=== PATIENT | female | born 1960 | race Caucasian/White ===

== ENCOUNTER 2021-02-10 10:24 | Inpatient (IN) | payer MEDICAID, OTHER ==
[2021-02-10] VITALS (10 sets, daily range): BP systolic 137–196; BP diastolic 67–94
[~2021-02-10] VITALS: Ht 170.2 cm; Wt 75.3 kg
[~2021-02-10 10:24] MED LIST: BP MED; FLUO10CA66 PO; ONDA8TAB9 PO; RES15C PO
[2021-02-10] MEDS ORDERED: iohexol 350MG/ML 100ml bottle IV ONE (10:51)
[2021-02-10] MEDS ORDERED: niCARDipine-NS 40mg/200ml IVPB 200 ML IV ONE (10:55)
[2021-02-10] MEDS ORDERED: LIDOcaine 2% 10ml TOPICAL JELLY (Urojet) TP ONE (10:55)
[2021-02-10] MEDS ORDERED: labetalol 20mg/4ml (5mg/ml) syringe IV ONE (10:55)
--- NOTE | 2021-02-10 10:55 | NUR ---
patient to ct.
[2021-02-10] MEDS ORDERED: levetiracetam inj 1,000 MG in normal saline 100ml IV soln 90 ML IV ONE (10:58)
[2021-02-10 11:20] LABS: ABG BASE EXCESS 0.9 mmol/L (-2.0-2.0); ABG HCO3 26.2 mmol/L (22.0-26.0); ABG OXYGEN SATURATION 97.9 % (94-97); ABG PCO2 (T) 44.2 mmHg (32.0-45.0); ABG PO2 (T) 118.6 mmHg (75.0-100.0); ALLEN'S TEST POSITIVE; FCOHb 3.1 % (0.0-3.9); FO2Hb 94.9 % (94-97); TOTAL HEMOGLOBIN 15.1 G/dl (12.0-16.0)
[2021-02-10] MEDS ORDERED: morphine 10mg/ml inj. IV ONE (11:35)
[2021-02-10 11:51] LABS: MONOCYTES # (AUTO) 0.2 X10'3 (0-0.9); WHITE BLOOD COUNT 7.2 X10'3 (4.5-11.0)
[2021-02-10 11:53] LABS: BASOPHILS % (AUTO) 0.5 % (0-1); EOSINOPHILS # (AUTO) 0.1 X10'3 (0-0.9); EOSINOPHILS % (AUTO) 1.8 % (0-6); HEMATOCRIT 50.8 % (35.0-45.0); HEMOGLOBIN 17.3 g/dl (12.0-16.0); LYMPHOCYTES # (AUTO) 1.7 X10'3 (1.1-4.8); LYMPHOCYTES % (AUTO) 23.6 % (21-51); MEAN CORPUSCULAR HEMOGLOBIN 29.5 PG (27.0-31.0); MEAN CORPUSCULAR VOLUME 86.8 FL (78-98); MEAN PLATELET VOLUME 8.5 FL (7.4-10.4); MONOCYTES % (AUTO) 3.4 % (2-12); NEUTROPHILS # (AUTO) 5.1 X10'3 (1.8-7.7); NEUTROPHILS % (AUTO) 70.7 % (42-75); PLATELET COUNT 290 X10'3 (140-440); RED BLOOD COUNT 5.85 X10'6 (4.20-5.60); RED CELL DISTRIBUTION WIDTH 13.7 % (11.5-14.5)
[2021-02-10 12:06] LABS: PARTIAL THROMBOPLASTIN TIME 22 SECONDS (22-32)
[2021-02-10 12:08] LABS: ALANINE AMINOTRANSFERASE 18 U/L (12-78); ALBUMIN 4.2 G/DL (3.4-5.0); ALBUMIN/GLOBULIN RATIO 0.9 (1.1-1.5); ALKALINE PHOSPHATASE 94 IU/L (46-116); ANION GAP 9 (8-16); ASPARTATE AMINO TRANSFERASE 16 U/L (10-37); BILIRUBIN,TOTAL 0.4 MG/DL (0.1-1.0); BLOOD UREA NITROGEN 17 MG/DL (7-18); BUN/CREATININE RATIO 19.3 (6.6-38.0); CALCIUM 9.8 MG/DL (8.5-10.1); CHLORIDE 100 MMOL/L (99-107); CREATININE 0.88 MG/DL (0.40-0.90); GLUCOSE 356 MG/DL (70-104); POTASSIUM 3.4 MMOL/L (3.5-5.1); SODIUM 141 MMOL/L (135-145); TOTAL CARBON DIOXIDE 31.7 MMOL/L (24-32); TOTAL PROTEIN 8.7 G/DL (6.4-8.2); eGFR 66 ML/MIN
[2021-02-10 12:11] LABS: TROPONIN I < 0.04 NG/ML (0.0-0.05)
--- NOTE | 2021-02-10 12:13 | NUR ---
stroke RN at bedside.
[2021-02-10] MEDS ORDERED: magnesium hydroxide 30ml (MOM) UD suspension PO PRN (12:15)
[2021-02-10] MEDS ORDERED: ondansetron/PF 4mg/2ml inj IV PRN (12:15)
[2021-02-10] MEDS ORDERED: morphine 4 MG/ML inj SYRINge IV PRN (12:15)
[2021-02-10] MEDS ORDERED: morphine 2 MG/ML inj. syringe IV PRN (12:15)
[2021-02-10] MEDS ORDERED: potassium Cl 20 mEq SR tablet PO PRN ×2 (12:15)
[2021-02-10] MEDS ORDERED: acetaminophen 325mg tablet PO PRN ×2 (12:15)
--- NOTE | 2021-02-10 13:15 | NUR ---
attempted to call report, no assign agriculture extension specialist yet.
[2021-02-10] MEDS ORDERED: NO HOME MEDS (13:26)
--- NOTE | 2021-02-10 14:00 | NUR ---
Patient up from ER and placed on bedside monitor; Nicardipine off and vital signs stable. Patient obtunded and responsive to painful stimuli with decerebrate posturing. Pupils remain pinpoint.
--- NOTE | 2021-02-10 14:21 | NUR ---
620ML CLEAR URINE OUT FROM BAIRES.
[2021-02-10] MEDS ORDERED: dextrose ORAL solution 15 GM/59 ML bottle PO PRN ×2 (14:55)
[2021-02-10] MEDS ORDERED: glucagon, human recombinant 1mg kit SUBCUT PRN (14:55)
[2021-02-10] MEDS ORDERED: dextrose 50%-water 50ml dispensing syringe IV PRN ×2 (14:55)
[2021-02-10] MEDS ORDERED: MESSAGE TO PHARMACY PO ONE (14:55)
[2021-02-10] MEDS: normal saline 1000ml 1,000 ML IV SCH (14:56)
[2021-02-10] MEDS: insulin Lispro (HumaLOG) vial - multi-dose SQ SCH ×2 (16:17→21:07)
--- NOTE | 2021-02-10 17:25 | NUR ---
Patient going in and out of sinus leobardo to the mid 40s up to 80s. SBP in the 180s; Dr. Mohan notified and at the bedside. Restart Nicardipine to keep SBP <170.
--- NOTE | 2021-02-10 18:20 | NUR ---
Problems reprioritized. Patient report given, questions answered & plan of care reviewed with Di HORNE.
[2021-02-10] MEDS: niCARDipine-NS 40mg/200ml IVPB 200 ML IV PRN ×2 (19:57→22:35)
[2021-02-10] MEDS: labetalol 20mg/4ml (5mg/ml) syringe IV PRN ×2 (20:44→22:53)
--- NOTE | 2021-02-10 20:45 | NUR ---
Ramila REYES called and notified of patient being maxed on cardene drip and still hypertensive, labetalol pushes ordered. also notified of irregular breathing patterns with periods of apnea and irregular heart rate and patient being in and out of a. fib. Will continue to monitor.
[2021-02-10] MEDS ORDERED: insulin glargine (Lantus) pen - multi-dose SQ SCH (21:00)
--- NOTE | 2021-02-10 21:43 | NUR ---
Family at bedside.
[2021-02-10] MEDS ORDERED: acetaminophen 1,000mg/100ml IV 100 ML IV ONE (23:15)
[2021-02-11] VITALS (20 sets, daily range): BP systolic 154–192; BP diastolic 57–89
[2021-02-11] MEDS: niCARDipine-NS 40mg/200ml IVPB 200 ML IV PRN ×6 (01:23→15:19)
[2021-02-11] MEDS: labetalol 20mg/4ml (5mg/ml) syringe IV PRN ×4 (02:30→09:52)
[2021-02-11] MEDS: insulin Lispro (HumaLOG) vial - multi-dose SQ SCH ×2 (02:42→08:18)
[2021-02-11] MEDS: normal saline 1000ml 1,000 ML IV SCH ×2 (03:44→14:55)
[2021-02-11 06:09] LABS: BASOPHILS % (AUTO) 0.1 % (0-1); EOSINOPHILS % (AUTO) 0 % (0-6); HEMOGLOBIN 16.5 g/dl (12.0-16.0); LYMPHOCYTES # (AUTO) 1.3 X10'3 (1.1-4.8); LYMPHOCYTES % (AUTO) 6.4 % (21-51); MEAN CORPUSCULAR HEMOGLOBIN 29.2 PG (27.0-31.0); MEAN CORPUSCULAR HGB CONC 33.6 g/dL (33.0-36.5); MEAN CORPUSCULAR VOLUME 86.8 FL (78-98); MEAN PLATELET VOLUME 8.6 FL (7.4-10.4); MONOCYTES # (AUTO) 1.1 X10'3 (0-0.9); MONOCYTES % (AUTO) 5.4 % (2-12); NEUTROPHILS # (AUTO) 17.5 X10'3 (1.8-7.7); NEUTROPHILS % (AUTO) 88.1 % (42-75); PLATELET COUNT 355 X10'3 (140-440); RED BLOOD COUNT 5.65 X10'6 (4.20-5.60); RED CELL DISTRIBUTION WIDTH 13.8 % (11.5-14.5); WHITE BLOOD COUNT 19.9 X10'3 (4.5-11.0)
[2021-02-11 06:17] LABS: ALBUMIN 3.5 G/DL (3.4-5.0); ANION GAP 10 (8-16); BLOOD UREA NITROGEN 20 MG/DL (7-18); BUN/CREATININE RATIO 20.6 (6.6-38.0); CHLORIDE 107 MMOL/L (99-107); CREATININE 0.97 MG/DL (0.40-0.90); GLUCOSE 219 MG/DL (70-104); SODIUM 147 MMOL/L (135-145); TOTAL CARBON DIOXIDE 29.6 MMOL/L (24-32); eGFR 59 ML/MIN
--- NOTE | 2021-02-11 06:25 | NUR ---
Problems reprioritized. Patient report given, questions answered & plan of care reviewed with OZZIE Stovall.
--- NOTE | 2021-02-11 08:16 | NUR ---
Farrukh Consult: Pt admitted w/ stroke and is currently non responsive but breathing on her own. No surgical intervention per Family, Pt DNR. No open wounds per EMR. Will continue to monitor. Addendum: 02/11/21 at [address] Amended: Links added.
[2021-02-11] MEDS ORDERED: LORazepam 2 mg/ml vial IV PRN ×2 (18:15)
[2021-02-11] MEDS ORDERED: MORPHINE SULFATE/PF 250 MG in normal saline 50ml IV soln 40 ML IV SCH ×6 (18:15)
--- NOTE | 2021-02-11 18:30 | NUR ---
Patient in room ICU 2040. I have received report from OZZIE Stovall and had the opportunity to ask questions and assume patient care.
--- NOTE | 2021-02-11 18:45 | NUR ---
Comfort care initiated, cardene drip turned off, ativan given, morphine gtt to be hung as soon as pharmacy brings up gtt. Family is sitting at bedside with patient.
[2021-02-11] MEDS: LORazepam 2 mg/ml vial IV PRN ×2 (18:55→22:59)
[2021-02-11] MEDS ORDERED: morphine 10mg/ml inj. 100 MG in normal saline 100ml IV soln 90 ML IV SCH (19:30)
--- NOTE | 2021-02-11 19:47 | NUR ---
Called [facility] to notify of patient going on comfort care. Spoke with Lisa, she informed me that because patient has a heartbeat and is not on a ventilator that I must call back at time of . no reference number was given at this time.
--- NOTE | 2021-02-11 22:45 | NUR ---
Patient with agonal breathing, desating into the 60's. Patient's sister at bedside shortly after agonal breathing begun. Patient's son notified of this change, he wishes to be called after her passing.
--- NOTE | 2021-02-11 23:13 | NUR ---
MD Montano notified of patient's time of
--- NOTE | 2021-02-11 23:15 | NUR ---
RN IS TO DOCUMENT YES TO ALL APPLICABLE AREAS Pronouncement of : 1. Time Physician Notified:2312 2. Date of :02/11/21 3. Time of : 2312 4. DNR/Withdraw life support documented: 5. Monitor strip has been placed on chart: Y 6. Assessment process is of one-minute duration and includes following criteria: a) Patient is unresponsive to all stimuli: Y b) Pupils fixed and non-reactive: Y c) Auscultation of precordium reveals absence of heart tones: Y d) Auscultation of lungs reveals absence of breath sounds: Y e) Absence of blood pressure / all vital signs: Y f) QRS complexes are not present on monitor / EKG strip: Y g) Pacer spikes without capture: N/A 4. Comments: Patient with sister Lily at bedside. Dhruv Vaughan, patient's son, called and notified of patient's passing.
--- NOTE | 2021-02-11 23:30 | NUR ---
Called [facility] to notify of patient's . Spoke to Krystina, received reference # [id number].
--- NOTE | 2021-02-12 | NUR ---
Fredy and Alhaji Mata called by discharge door operator. Awaiting transport of patient to mortuary.
== END 2021-02-12 02:00 | DRG 44 ==
LOC: ER 10:25 → ED HOLD 12:28 → ICU 2S 14:03
PROVIDERS: ADMIT Surgery; ATTEND Surgery
PROC: B3251ZZ Computerized Tomography (CT Scan) of Bilateral Common Carotid Arteries using Low Osmolar Contrast (ICD-10-PCS; principal; 2021-02-10)
PROC: B32G1ZZ Computerized Tomography (CT Scan) of Bilateral Vertebral Arteries using Low Osmolar Contrast (ICD-10-PCS; 2021-02-10)
PROC: B32R1ZZ Computerized Tomography (CT Scan) of Intracranial Arteries using Low Osmolar Contrast (ICD-10-PCS; 2021-02-10)
PROC: B3281ZZ Computerized Tomography (CT Scan) of Bilateral Internal Carotid Arteries using Low Osmolar Contrast (ICD-10-PCS; 2021-02-10)
DX: I61.9 Nontraumatic intracerebral hemorrhage, unspecified (principal); I10 Essential (primary) hypertension; I16.1 Hypertensive emergency; Z66 Do not resuscitate
CPT/HCPCS: 36415; 36600; 70450; 70496; 70498; 71045; 80048; 80053; 82803; 82948; 84484; 85018; 85025; 85610; 85730; 87081; 93005; 94799; 96365; 96368; 96375; 99291; G0378; J0131; J1815; J1953; J2060; J2150; J2270; J3490; J7030; Q9967